=== PATIENT | male | born 1945 | race Two or more races ===

== ENCOUNTER 2019-03-24 19:38 | Emergency (ER) | payer OTHER ==
[~2019-03-24] VITALS: Ht 177.8 cm; Wt 95.3 kg
[~2019-03-24 19:38] MED LIST: METF-440 PO; PARO10TA86 PO; QUET100T PO; ZOLP5TAB2 PO
--- NOTE | 2019-03-24 19:59 | NUR ---
BIBA FOR EPISODES OF RECTAL BLEEDING AND A SHORT EPISODE OF CP AT HOME. NO C/O CP AT THIS TIME. NO N/V. PLACED ON A MONITOR,
[2019-03-24 20:23] LABS: BASOPHILS % (AUTO) 0.6 % (0.0-2.0); EOSINOPHILS % (AUTO) 2.9 % (0.0-6.0); HEMATOCRIT 42 % (39-51); HEMOGLOBIN 14.1 g/dL (13.5-17.5); LYMPHOCYTES # (AUTO) 1.2 /CMM (0.8-4.8); LYMPHOCYTES % (AUTO) 14.7 % (20.0-44.0); MEAN CORPUSCULAR HGB CONC 33 g/dl (31.0-36.0); MEAN CORPUSCULAR VOLUME 92 fL (80-96); MONOCYTES # (AUTO) 0.6 /CMM (0.1-1.30); MONOCYTES % (AUTO) 7.3 % (2.0-12.0); NEUTROPHILS # (AUTO) 5.9 /CMM (1.8-8.9); NEUTROPHILS % (AUTO) 74.5 % (43.0-81.0); PLATELET COUNT (AUTO) 276 /CMM (150-450); RED BLOOD CELL COUNT(AUTO) 4.63 MIL/uL (4.5-6.0); WHITE BLOOD COUNT (AUTO) 7.9 K/uL (4.3-11.0)
[2019-03-24 20:30] LABS: CALCIUM, SERUM 9.5 mg/dL (8.5-10.1); CARBON DIOXIDE 27 mmol/L (21-32); CHLORIDE 100 mmol/L (98-107); GLUCOSE 136 mg/dL (74-106); POTASSIUM 4.3 mmol/L (3.5-5.1); SODIUM SERUM 136 mmol/L (136-145); UREA NITROGEN, BLOOD 20 mg/dL (7-18)
[2019-03-24] MEDS ORDERED: IV NS 0.9% 1,000 ML BAG IV ONE ×2 (20:30→23:00)
[2019-03-24 20:36] LABS: ALANINE AMINOTRANSFERASE 26 U/L (12-78); ALKALINE PHOSPHATASE 62 U/L (46-116); ASPARTATE AMINOTRANSFERASE 16 U/L (15-37); BILIRUBIN,DIRECT 0.1 mg/dL (0.0-0.2); BILIRUBIN,TOTAL 0.4 mg/dL (0.2-1.0); LIPASE 170 U/L (73-393); TOTAL PROTEIN, SERUM 7.5 g/dL (6.4-8.2)
--- NOTE | 2019-03-24 20:59 | NUR ---
REPORT GIVEN TO LATRICE ON THE THIRD FLOOR
[2019-03-24 22:20] LABS: OCCULT BLOOD STOOL POSITIVE (NEGATIVE)
--- NOTE | 2019-03-24 22:56 | NUR ---
PER PREET COLLINS AWAITING BED ASSIGNMENT FROM [facility]
--- NOTE | 2019-03-24 23:45 | NUR ---
TRANSFER INFO: PT GOING TO [facility] DIRECT ADMIT TO ROOM 201-B DAVID MASTERSON, , AMBULANCE ETA TO FOLLOW PER PREET GONZALEZ
--- NOTE | 2019-03-25 | NUR ---
AMBULANCE ETA [id number]
--- NOTE | 2019-03-25 00:08 | NUR ---
[facility]- [phone]
--- NOTE | 2019-03-25 00:16 | NUR ---
REPORT GIVEN TO NACHO HERNANDEZ AT [facility].
[2019-03-25 02:06] VITALS: BP 111/80
--- NOTE | 2019-03-25 02:17 | NUR ---
PT WAS TRANSFERRED TO [facility] IN STABLE CONDITION. VIA [facility]
== END 2019-03-25 02:21 ==
LOC: ER 19:45
DX: K62.5 Hemorrhage of anus and rectum (principal); E86.0 Dehydration; I10 Essential (primary) hypertension; E11.9 Type 2 diabetes mellitus without complications; R00.0 Tachycardia, unspecified; Z86.2 Personal history of diseases of the blood and blood-forming organs and certain disorders involving the immune mechanism
CPT/HCPCS: 36415; 71045; 80048; 80076; 82272; 83690; 84484; 85025; 85730; 86850; 87081; 93005; 96360; 96361; 99285; J7030 ×2

== ENCOUNTER 2019-11-14 21:40 | Emergency (ER) | payer MEDICARE, OTHER ==
[~2019-11-14] VITALS: Ht 167.6 cm; Wt 95.7 kg
[2019-11-14] MEDS ORDERED: LIDOCAINE 2% JEL UROJET 10 ML MM ONE ×2 (22:18→22:30)
--- NOTE | 2019-11-14 22:31 | NUR ---
BIBS FROM HOME. TO ER BED 2. AAOX4. NO RESP DISTRESS. AMBULATORY USING A ELECTRIC WHEELCHAIR. C/O NO URINATION SINCE 10AM. NO NOTED DISTENTION OR PAIN UPON PALPATION. BLADDER SCAN READ >186ML. WAS AT BEDSIDE FOR EVAL. ORDERS RECEIVED. DE DIOS CATH INSERTED USING STRCI STERILE TECHNIQUE.I URINE SENT TO LAB PER ORDER
[2019-11-14 22:33] LABS: APPEARANCE,URINE Clear (CLEAR); BILIRUBIN,URINE Negative (NEGATIVE); BLOOD, URINE Trace-intact Ery/uL (NEGATIVE); COLOR,URINE Yellow (YELLOW); KETONES,URINE Negative (NEGATIVE); LEUKOCYTE ESTERASE ,URINE Negative (NEGATIVE); NITRITE, URINE Negative (NEGATIVE); PROTEIN,URINE Negative (NEGATIVE); UGLUCOSE Negative (NEGATIVE); UROBILINOGEN,URINE 0.2 EU/dL (0.2)
[2019-11-14 23:18] LABS: BACTERIA,URINE None seen /HPF (None Seen); RBC,URINE 0-2 /HPF (0-2); SQUAMOUS EPITHELIAL CELL,UR Few /HPF (None Seen); WBC,URINE 0-2 /HPF (0-3)
--- NOTE | 2019-11-14 23:25 | NUR ---
URINE OUTPUT NOTED AT 450ML. MADE AWARE
--- NOTE | 2019-11-14 23:27 | NUR ---
PT LEFT HOME WITH DE DIOS CATH. INSTRUCTION FOR CARE GIVEN TO PT. PT PREFFERS THAT URINARY BAG THAT THE LEG BAG.
--- NOTE | 2019-11-14 23:27 | NUR ---
Patient discharged to home in stable condition. Written and verbal after care instructions given. Patient verbalizes understanding of instruction.
[2019-11-14 23:28] VITALS: BP 121/80
== END 2019-11-14 23:28 | disposition home or self-care (01) ==
LOC: ER 21:53
DX: R33.9 Retention of urine, unspecified (principal); N40.0 Benign prostatic hyperplasia without lower urinary tract symptoms; I10 Essential (primary) hypertension; E11.9 Type 2 diabetes mellitus without complications; G89.29 Other chronic pain; Z98.890 Other specified postprocedural states; Z79.84 Long term (current) use of oral hypoglycemic drugs; Z79.899 Other long term (current) drug therapy
CPT/HCPCS: 51702; 81001; 99284; J3490; 81000-TC

== ENCOUNTER 2019-11-16 15:56 | Emergency (ER) | payer OTHER ==
[~2019-11-16] VITALS: Ht 167.6 cm; Wt 95.7 kg
--- NOTE | 2019-11-16 16:18 | NUR ---
patient arrived at unit for catheter check, inserted 48hrs ago due to urinary retension
--- NOTE | 2019-11-16 16:56 | NUR ---
REMOVED DE DIOS CATH PER DR MACIEL ORDER. PATIENT TOLERATED PROCEDURE WELL. NO BLEEDING NOTED. DR MACIEL AWARE. NO FURTHER ORDERS AT THIS TIME.
--- NOTE | 2019-11-16 17:12 | NUR ---
Patient discharged to home in stable condition. Written and verbal after care instructions given. Patient verbalizes understanding of instruction.
[2019-11-16 17:13] VITALS: BP 97/59
== END 2019-11-16 17:13 | disposition home or self-care (01) ==
LOC: ER 16:01
DX: N40.0 Benign prostatic hyperplasia without lower urinary tract symptoms (principal); I10 Essential (primary) hypertension; E11.9 Type 2 diabetes mellitus without complications; Z98.890 Other specified postprocedural states; Z60.2 Problems related to living alone; Z79.899 Other long term (current) drug therapy

== ENCOUNTER 2020-05-31 13:22 | Emergency (ER) | payer OTHER ==
[~2020-05-31] VITALS: Ht 167.6 cm; Wt 100.2 kg
--- NOTE | 2020-05-31 13:40 | NUR ---
PACO FROM HOME TO ER BED 14. AAOX4. NOT IN RESP DISTRESS, BREATHING EVEN AND UNLABORED. PT REPORTS HIMSELF AMBULATORY WITH AN AIDE FOR A ELECTRIC SCOOTER. PT WAS FOUND ON THE FLOOR UNABLE TO GET UP. PT DOES NOT REMEMEBER FALLING DOWN, REPORTS WAKING UP ON THE FLOOR AND UNABLE TO GET UP. PT REPORTS THAT HE TAKES AMBIEN AT NIGHT. NOT NOTED VISUAL TRAUMA. PT'S R LEG PAIN IS NOT PRESENT AT THE TIME OF ASSESSMENT. AWAITING MD FOR EVAL.
[2020-05-31 15:01] LABS: BASOPHILS % (AUTO) 0.2 % (0.0-2.0); EOSINOPHILS % (AUTO) 0.1 % (0.0-6.0); HEMATOCRIT 41 % (39-51); HEMOGLOBIN 13.1 g/dL (13.5-17.5); LYMPHOCYTES # (AUTO) 0.3 /CMM (0.8-4.8); LYMPHOCYTES % (AUTO) 1.5 % (20.0-44.0); MEAN CORPUSCULAR HGB CONC 32 g/dl (31.0-36.0); MEAN CORPUSCULAR VOLUME 90 fL (80-96); NEUTROPHILS # (AUTO) 15.6 /CMM (1.8-8.9); NEUTROPHILS % (AUTO) 92.2 % (43.0-81.0); PLATELET COUNT (AUTO) 269 /CMM (150-450)
[2020-05-31 15:08] LABS: CALCIUM, SERUM 9.5 mg/dL (8.5-10.1); CARBON DIOXIDE 26 mmol/L (21-32); CHLORIDE 101 mmol/L (98-107); CREATININE 1.5 mg/dL (0.6-1.3); GLUCOSE 183 mg/dL (74-106); POTASSIUM 5.2 mmol/L (3.5-5.1); SODIUM SERUM 135 mmol/L (136-145); UREA NITROGEN, BLOOD 37 mg/dL (7-18)
--- NOTE | 2020-05-31 15:28 | NUR ---
CALLED [facility] FOR CONSULT
--- NOTE | 2020-05-31 15:36 | NUR ---
[facility] DUE TO [facility] PT
[2020-05-31] MEDS ORDERED: PRAV20TA4 PO (15:39)
[2020-05-31] MEDS ORDERED: SITA50TA PO (15:39)
[2020-05-31] MEDS ORDERED: LISI10TA5 PO (15:39)
[2020-05-31] MEDS ORDERED: LITH300C2 PO (15:39)
[2020-05-31] MEDS ORDERED: PRAZ1CAP17 PO (15:39)
[2020-05-31] MEDS ORDERED: TAMS-12 PO (15:39)
[2020-05-31] MEDS ORDERED: QUET200T PO (15:39)
[2020-05-31] MEDS ORDERED: MIRT30TA7 PO (15:39)
[2020-05-31] MEDS ORDERED: MORPHINE SULFATE INJ 2 MG/ML DISP.SYRIN IV ONE (16:00)
[2020-05-31] MEDS ORDERED: ONDANSETRON HCL/PF - ER 4 MG/2 ML VIAL IV ONE (16:00)
--- NOTE | 2020-05-31 16:01 | NUR ---
GAVE MOVESHEET AND CLINICALS TO ADMITTING FOR AUTH
[2020-05-31] MEDS ORDERED: ONDANSETRON HCL/PF 4 MG/2 ML VIAL ONE (16:05)
[2020-05-31] MEDS ORDERED: MORPHINE SULFATE INJ 2 MG/ML DISP.SYRIN ONE (16:05)
--- NOTE | 2020-05-31 16:15 | NUR ---
PT REFUSED TO HAVE A DE DIOS CATH. EXPLAINED RISK AND BENEFIT WITH REGARDS TO HIS CASE. PT IS CONTINENT AND ABLE TO USE A URINAL AND PREFFERS IT THAT WAY. MADE AWARE.
--- NOTE | 2020-05-31 16:31 | NUR ---
NORMA RIVAS WILL CALL BACK WITH UPDATE ONCE COVID RESULT IS DETERMINED
--- NOTE | 2020-05-31 16:41 | NUR ---
COVID SWAB DONE AND SENT TO LAB
--- NOTE | 2020-05-31 18:40 | NUR ---
FAXED COVID RESULT TO [facility]
--- NOTE | 2020-05-31 18:54 | NUR ---
[facility] [phone]
--- NOTE | 2020-05-31 19:40 | NUR ---
PT ACCEPTED BY DR LESLIE
--- NOTE | 2020-05-31 19:43 | NUR ---
TRANSFER INFO: PT GOING TO [facility] ROOM 221-A, ENOC HERNANDEZ FOR REPORT [phone] ETA TO FOLLOW
[2020-05-31 20:05] VITALS: BP 127/77
--- NOTE | 2020-05-31 20:26 | NUR ---
[facility] ETA 2200 HOURS
--- NOTE | 2020-05-31 20:33 | NUR ---
REPORT GIVEN TO DAVID COTTON FOR SUNDAY AT THE [facility]
--- NOTE | 2020-05-31 20:56 | NUR ---
[facility] AT BEDSIDE FOR PT TRANSPORT TO [facility]
--- NOTE | 2020-05-31 21:10 | NUR ---
PT LEFT ON GURNEY WITH 2 AMBULANCE STAFF. PT IS IN STABLE CONDITION FOR TRANSPORT. NAD NOTED.
== END 2020-05-31 21:10 | disposition short-term general hospital (02) ==
LOC: ER 13:29
DX: S72.011A Unspecified intracapsular fracture of right femur, initial encounter for closed fracture (principal); W19.XXXA Unspecified fall, initial encounter; Y92.039 Unspecified place in apartment as the place of occurrence of the external cause; E11.9 Type 2 diabetes mellitus without complications; Z79.84 Long term (current) use of oral hypoglycemic drugs; R94.31 Abnormal electrocardiogram [ECG] [EKG]; N17.9 Acute kidney failure, unspecified; E87.5 Hyperkalemia; E86.0 Dehydration; D64.9 Anemia, unspecified; D72.829 Elevated white blood cell count, unspecified; R00.0 Tachycardia, unspecified; Z20.828 Contact with and (suspected) exposure to other viral communicable diseases
CPT/HCPCS: 36415; 71045; 73502; 73552; 80048; 85025; 85730; 87426; 93005; 96374; 96375; 99285; J2270; J2405; C9803-CS